=== PATIENT | female | born 1975 | race Native Hawaiian/Other Pacific Islander ===

== ENCOUNTER 2024-02-06 20:57 | Observation (INO) | payer OTHER, SELFPAY ==
[2024-02-06] VITALS (19 sets, daily range): BP systolic 154–188; BP diastolic 102–128; PULSE 88–115; RESP 18–34; TEMP 36.8; O2SAT 89–100
--- NOTE | ~2024-02-06 | XR_ITS ---
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 RESULT: Lines, tubes, and devices: Tracheostomy tube in good position. Lungs and pleura: Significant rightward rotation. Segmental right lower lung airspace disease and mi ld right costophrenic angle blunting. Suggestion of mild diffuse reticular opacities with indistinct vessels Cardiomediastinal silhouette: Stable. Other: No acute osseous or upper abdominal finding. IMPRESSION: Exam limited by rotation. Segmental right lower lung atelectasis/consolidation. Suggestion of mild in terstitial edema. Possible small right pleural effusion. Reviewed, dictated and finalized at location K. TRAINER OPERATOR IMPRESSION: Exam limited by rotation. Segmental right lower lung atelectasis/consolidation. Suggestion of mild interstitial edema. Possible small right pleural effusion.
--- NOTE | 2024-02-06 21:06 | ECG_ITS ---
Test Date: 2024-02-06 21:21:27 Measurements Intervals [place] Rate: 93 P: 16 IL: 159 QRS: 8 QRSD: 85 T: 33 QT: 326 QTc: 406 Interpretive Statements SINUS RHYTHM LOW QRS VOLTAGE IN PRECORDIAL LEADS BORDERLINE R WAVE PROGRESSION, ANTERIOR LEADS CONSIDER INFERIOR INFARCT, AGE INDETERMINATE BASELINE ARTIFACT- I, II, III, AVR, AVL, AVF, V1-V2 ABNORMAL ECG No previous ECG available for comparison Electronically Signed On 02-07-2024 06:17:53 [employer] by Stanley Lopez D.O.
[2024-02-06] MEDS: IPRATROPIUM 0.5 MG/ALBUTEROL SULFATE 2.5 MG AMPUL.NEB 3 ML INHALATION (21:28)
[2024-02-06] MEDS: Please add drug allergy info to patient profile. 1 EACH XX (21:39)
[2024-02-06 22:09] LABS: Basophils Absolute Auto 0.1 K/mm3 (0.0-0.1); Basophils Percent Auto 0.8 % (0.2-1.2); Eosinophils Absolute Auto 0.3 K/mm3 (0-0.3); Hematocrit 31.4 % (37.0-47.0); Hemoglobin 9.4 g/dL (12.0-15.0); Immature Granulocyte Absolute 0.39 K/mm3 (0.00-0.031); Lymphocytes Absolute Auto 0.84 K/mm3 (0.9-3.2); Lymphocytes Percent Auto 6.6 % (18.3-44.2); Mean Corpuscular HGB Conc 29.9 g/dl (32-36); Mean Corpuscular Hemoglobin 29.4 pg (26-34); Mean Corpuscular Volume 98.1 fl (80-100); Mean Platelet Volume 8.6 fl (7.4-10.4); Monocytes Absolute Auto 0.9 K/mm3 (0.1-0.6); Monocytes Percent Auto 6.6 % (2.6-8.5); Neutrophils Absolute Auto 10.4 K/mm3 (1.3-6.7); Platelet Count Result 219 k/mm3 (150-375); Red Cell Distribution Width 14.7 % (11.5-14.5); White Blood Count 12.8 K/mm3 (4.5-10.0)
[2024-02-06 22:17] LABS: Hypochromasia 1+; Lactic Acid Reflex 0.8 mmol/L (0.7-2.0); Ovalocytes 1+; Platelet Estimate Adequate (Adequate); Schistocytes None Seen
[2024-02-06 22:18] LABS: Influenza A QL RT-PCR Negative (Negative); Influenza B QL RT-PCR Negative (Negative); RSV RNA, RT-PCR Negative (Negative); SARS-CoV-2 RNA PCR Negative (Negative)
[2024-02-06 22:19] LABS: Alanine Aminotransferase 15 U/L (6-35); Albumin Level 3.6 g/dL (3.5-5.1); Alkaline Phosphatase 105 U/L (38-126); Anion Gap 7 mmol/L (4-12); Aspartate Amino Transferase 16 U/L (14-36); Bilirubin,Total 0.7 mg/dL (0.2-1.3); Blood Urea Nitrogen 68 mg/dL (7-17); Calcium 9.2 mg/dL (8.4-10.2); Carbon Dioxide 26 mmol/L (22-30); Chloride 109 mmol/L (98-107); Estimated CRCL calculation 41 ml/min; Estimated Glomerular Filt Rate 17; Glucose 167 mg/dL (65-110); Sodium 142 mmol/L (137-145)
[2024-02-06 22:27] LABS: NT Pro B Type Natriuretic Pept 2720 pg/mL (19.9-100)
[2024-02-06 23:06] LABS: Troponin I 0.041 ng/mL (0.000-0.034)
[2024-02-06] MEDS: ASPIRIN 81 MG CHEWABLE TABLET 324 MG PO (23:20)
[2024-02-07] VITALS (54 sets, daily range): BP systolic 113–200; BP diastolic 67–131; PULSE 63–102; RESP 15–33; TEMP 36.1–36.9; O2SAT 92–100; BMI 59.6
[2024-02-07 01:19] LABS: Alveolar/Arterial O2 Gradient 73.9 mmHg; Base Excess ABG -1.1 mEq/l (+/-2.0); Fractional Inspired Oxygen 28 %; HCO3 ABG 24.2 mEq/l (22.0-26.0); Oxygen Content ABG 13.9 %vol (16.0-22.0); Oxygen Saturation ABG 94.8 % (95.0-100.0); Oxyhemoglobin 93.9 % THb (90.0-100.0); PCO2 ABG 42.7 mmHg (35.0-45.0); PO2 ABG 75.4 mmHg (80.0-100.0); PO2 FiO2 Ratio Arterial Blood 2.69 %; Total Hemoglobin 10.5 g/dL (12.0-18.0); pH ABG 7.371 (7.350-7.450)
[2024-02-07 01:20] LABS: Device VENTURI MASK; Modified Allen's Test Pass; Site Drawn RIGHT RADIAL
--- NOTE | 2024-02-07 01:29 | PC.NURSE ---
bjc updated abg results
--- NOTE | 2024-02-07 02:17 | ECG_ITS ---
Test Date: 2024-02-07 02:26:33 Measurements Intervals [place] Rate: 84 P: 8 TN: 158 QRS: 1 QRSD: 98 T: 30 QT: 364 QTc: 432 Interpretive Statements SINUS RHYTHM INCOMPLETE RIGHT BUNDLE BRANCH BLOCK BASELINE ARTIFACT- I, II, AVR, AVL, AVF BORDERLINE ECG Compared to ECG 02/06/2024 21:21:27 NO SIGNIFICANT CHANGE Electronically Signed On 02-07-2024 06:19:58 [employer] [facility] by Stanley Lopez D.O.
[2024-02-07 02:38] LABS: Troponin I 0.056 ng/mL (0.000-0.034)
[2024-02-07] MEDS: MORPHINE SULFATE (*CRX) 2 MG/ML INJ IV PUSH (02:40)
--- NOTE | 2024-02-07 03:18 | ED_ITS ---
HPI - General Adult General Chief complaint: Shortness of Breath/Dyspnea <Piter Segal MD - Last Filed: 02/07/24 05:03> Stated complaint: low O2 sats, trach, bariatric patient <Piter Segal MD - Last Filed: 02/07/24 05:03> Time Seen by Provider: 02/06/24 21:01 <Piter Segal MD - Last Filed: 02/07/24 05:03> History of Present Illness HPI narrative: Patient 48-year-old female who presents emergency department with chief complaint of shortness of breath. Patient was discharged from [facility] earlier this afternoon to [place] the patient arrived to the facility she has a chronic trach and the facility was unable to suction her as they do not have the appropriate equipment the patient states that she became short of breath and had mucus plugging patient is feeling better since she has been suctioned of but does not feel comfortable going back to the facility and would like to be transferred back to where she was previously admitted at. <Piter Segal MD - Last Filed: 02/07/24 05:03> Related Data Home medications: Home Medications Medication Instructions Recorded Confirmed Aspercreme (lidocaine HCl) 02/06/24 02/06/24 Miralax 02/06/24 Saccharomyces boulardii 250 mg 250 mg PO BID 02/06/24 capsule (Florastor) acetaminophen 500 tablet 02/06/24 albuterol See Rx Instructions .Route .COMPLEX 02/06/24 02/06/24 amoxicillin 500 mg-potassium 02/06/24 02/06/24 clavulanate 125 mg tablet ettpllsl-wbltdftsy-nsgiflq HMB 02/06/24 02/06/24 bisacodyl 10 mg rectal suppository 02/06/24 02/06/24 (Gentle Laxative (bisacodyl)) budesonide 02/06/24 02/06/24 buspirone 10 mg tablet 02/06/24 02/06/24 citalopram 20 mg tablet 10 mg 02/06/24 cyclobenzaprine 10 mg tablet mg 02/06/24 cyclobenzaprine 10 mg tablet mg 02/06/24 furosemide 40 mg tablet mg 02/06/24 furosemide 40 mg tablet (Lasix) 40 mg PO DAILY 02/06/24 02/06/24 glucagon 02/06/24 guaifenesin 600 tablet 02/06/24 insulin glargine See Protocol 02/06/24 insulin lispro 02/06/24 ipratropium-albuterol 02/06/24 loperamide 2 mg capsule 2 mg PO Q4H PRN Diarrhea 02/06/24 miconazole nitrate 2 % topical 1 applic topical DAILY 02/06/24 cream montelukast 10 mg tablet mg 02/06/24 multivitamin tablet 02/06/24 naloxone 4 mg/actuation nasal spray intranasal 02/06/24 nifedipine 20 mg capsule mg 02/06/24 ondansetron HCl 4 mg tablet mg 02/06/24 oxybutynin chloride 10 mg mg PO 02/06/24 tablet,extended release 24 hr oxycodone-acetaminophen 5 mg-325 tablet 02/06/24 mg tablet pantoprazole 40 mg tablet,delayed mg PO 02/06/24 release rivaroxaban 10 mg tablet (Xarelto) 10 mg PO DAILY 02/06/24 simethicone 80 mg chewable tablet 80 mg PO DAILY PRN 02/06/24 Gastrointestinal Spasms Or Cramping sodium zirconium cyclosilicate 10 g PO 02/06/24 gram oral powder packet (Lokelma) white petrolatum topical 02/06/24 <Piter Segal MD - Last Filed: 02/07/24 05:03> Allergies/adverse reactions: Allergies Allergy/AdvReac Type Severity Reaction Status Date / Time levofloxacin [From Levaquin] Allergy Unknown Verified 02/06/24 21:39 vancomycin Allergy Unknown Verified 02/06/24 21:38 <Piter Segal MD - Last Filed: 02/07/24 05:03> Review of Systems Review of Systems: A 10 system review of systems was completed on the patient and is negative except for what is stated in the HPI. Nursing and ancillary documentation was reviewed. <Piter Segal MD - Last Filed: 02/07/24 05:03> Exam Narrative: GENERAL: Chronically ill appearing, morbidly obese, and in no acute distress. HEAD: Normocephalic, atraumatic. EYES: PERRLA and EOMI. ENT: Nares clear, no rhinorrhea or epistaxis. Mucous membranes moist. NECK: Supple. Tracheostomy in place CHEST: Clear to auscultation. No respiratory distress. HEART: Regular rate and rhythm. No murmur heard. Normal peripheral pulses. ABDOMEN: Soft, nontender, nondistended, normal active bowel sounds. EXTREMITIES: Normal range of motion. No edema. SKIN: Warm, dry, no rash. NEURO: No focal deficits. Alert and oriented x3. PSYCH: Normal mood and affect. <Piter Segal MD - Last Filed: 02/07/24 05:03> Course Course Emergency Course: [place] 181: patient signed out to me pending transfer ability [facility] for placement into a appropriate long-term care facility. [facility] said they would not have beds for an extended period of time. We attempted to have the patient placed via care coordination our emergency department but due to unclear respiratory requirements we were unable to have her placed at this time. She will be admitted to the hospital. Per coordination of care they will need a service operator consult for appropriate AVAPS settings <Gray Muñoz MD - Last Filed: 02/07/24 18:16> Vital Signs Vital signs: Vital Signs Temperature 98.2 F 02/06/24 20:58 Pulse Rate 105 H 02/06/24 20:58 Respiratory Rate 25 H 02/06/24 20:58 Blood Pressure 154/123 H 02/06/24 20:58 Pulse Oximetry 94 02/06/24 20:58 Oxygen Delivery Trach Collar 02/06/24 20:58 Temperature 98.0 F 02/07/24 08:45 Pulse Rate 97 02/07/24 17:24 Respiratory Rate 19 02/07/24 17:24 Blood Pressure 168/102 H 02/07/24 17:24 Pulse Oximetry 95 02/07/24 17:24 Oxygen Delivery High Flow Therapy with Trach Collar 02/07/24 12:48 Oxygen Flow Rate 35 02/07/24 12:48 Fraction of Inspired Oxygen 30 02/07/24 12:48 <Piter Segal MD - Last Filed: 02/07/24 05:03> Vital Signs Temperature 98.2 F 02/06/24 20:58 Pulse Rate 105 H 02/06/24 20:58 Respiratory Rate 25 H 02/06/24 20:58 Blood Pressure 154/123 H 02/06/24 20:58 Pulse Oximetry 94 02/06/24 20:58 Oxygen Delivery Trach Collar 02/06/24 20:58 Temperature 98.0 F 02/07/24 08:45 Pulse Rate 97 02/07/24 17:24 Respiratory Rate 19 02/07/24 17:24 Blood Pressure 168/102 H 02/07/24 17:24 Pulse Oximetry 95 02/07/24 17:24 Oxygen Delivery High Flow Therapy with Trach Collar 02/07/24 12:48 Oxygen Flow Rate 35 02/07/24 12:48 Fraction of Inspired Oxygen 30 02/07/24 12:48 <Gray Muñoz MD - Last Filed: 02/07/24 18:16> Medical Decision Making Vital Signs Vital Signs: Vital Signs Temperature 98.2 F 02/06/24 20:58 Pulse Rate 105 H 02/06/24 20:58 Respiratory Rate 25 H 02/06/24 20:58 Blood Pressure 154/123 H 02/06/24 20:58 Pulse Oximetry 94 02/06/24 20:58 Oxygen Delivery Trach Collar 02/06/24 20:58 Temperature 98.0 F 02/07/24 08:45 Pulse Rate 97 02/07/24 17:24 Respiratory Rate 19 02/07/24 17:24 Blood Pressure 168/102 H 02/07/24 17:24 Pulse Oximetry 95 02/07/24 17:24 Oxygen Delivery High Flow Therapy with Trach Collar 02/07/24 12:48 Oxygen Flow Rate 35 02/07/24 12:48 Fraction of Inspired Oxygen 30 02/07/24 12:48 <Piter Segal MD - Last Filed: 02/07/24 05:03> Vital Signs Temperature 98.2 F 02/06/24 20:58 Pulse Rate 105 H 02/06/24 20:58 Respiratory Rate 25 H 02/06/24 20:58 Blood Pressure 154/123 H 02/06/24 20:58 Pulse Oximetry 94 02/06/24 20:58 Oxygen Delivery Trach Collar 02/06/24 20:58 Temperature 98.0 F 02/07/24 08:45 Pulse Rate 97 02/07/24 17:24 Respiratory Rate 19 02/07/24 17:24 Blood Pressure 168/102 H 02/07/24 17:24 Pulse Oximetry 95 11/27/24 17:24 Oxygen Delivery High Flow Therapy with Trach Collar 02/07/24 12:48 Oxygen Flow Rate 35 02/07/24 12:48 Fraction of Inspired Oxygen 30 02/07/24 12:48 <Gray Muñoz MD - Last Filed: 02/07/24 18:16> Lab Data Result diagrams: 02/06/24 22:04 02/06/24 22:04 <Piter Segal MD - Last Filed: 02/07/24 05:03> Labs: Lab Results 02/06/24 02/06/24 02/07/24 Range/Units 21:14 22:04 02:07 WBC 12.8 H (4.5-10.0) K/mm3 RBC 3.20 L (4.2-5.4) M/mm3 Hgb 9.4 L (12.0-15.0) g/dL Hct 31.4 L (37.0-47.0) % MCV 98.1 (80-100) fl MCH 29.4 (26-34) pg MCHC 29.9 L (32-36) g/dl RDW 14.7 H (11.5-14.5) % Plt Count 219 (150-375) k/mm3 MPV 8.6 (7.4-10.4) fl Immature Gran % (Auto) 3.0 H (0-0.5) % Neut % (Auto) 81.0 H (45.5-73.1) % Lymph % (Auto) 6.6 L (18.3-44.2) % [place] % (Auto) 6.6 (2.6-8.5) % Eos % (Auto) 2.0 (0-4.4) % Baso % (Auto) 0.8 (0.2-1.2) % Lymph # (Auto) 0.84 L (0.9-3.2) K/mm3 [place] # (Auto) 0.9 H (0.1-0.6) K/mm3 Eos # (Auto) 0.3 (0-0.3) K/mm3 Baso # (Auto) 0.1 (0.0-0.1) K/mm3 Abs Immat Gran (auto) 0.39 H (0.00-0.031) K/mm3 Absolute Neuts (auto) 10.4 H (1.3-6.7) K/mm3 Absolute Nucleated RBC 0.000 (0.0-0.012) K/mm3 Nucleated RBC % 0.0 (0.0-0.2) % Platelet Estimate Adequate (Adequate) Hypochromasia 1+ Ovalocytes 1+ Schistocytes None seen Sodium 142 (137-145) mmol/L Potassium 5.0 (3.4-5.0) mmol/L Chloride 109 H (98-107) mmol/L Carbon Dioxide 26 (22-30) mmol/L Anion Gap 7 (4-12) mmol/L BUN 68 H (7-17) mg/dL Creatinine 3.00 H (0.7-1.0) mg/dL Estim Creat Clear Calc 41 ml/min Estimated GFR 17 L (59 - ) Glucose 167 H (65-110) mg/dL Lactic Acid 0.8 (0.7-2.0) mmol/L Calcium 9.2 (8.4-10.2) mg/dL Total Bilirubin 0.7 (0.2-1.3) mg/dL AST 16 (14-36) U/L ALT 15 (6-35) U/L Alkaline Phosphatase 105 (38-126) U/L Troponin I 0.041 H* 0.056 H* D (0.000-0.034) ng/mL NT-Pro-B Natriuret Pep 2720 H (19.9-100) pg/mL Total Protein 7.0 (6.3-8.2) g/dL Albumin 3.6 (3.5-5.1) g/dL Influenza A (RT-PCR) Negative (Negative) Influenza B (RT-PCR) Negative (Negative) RSV (RT-PCR) Negative (Negative) SARS-CoV-2 RNA (RT-PCR) Negative (Negative) <Piter Segal MD - Last Filed: 02/07/24 05:03> Lab Results 02/06/24 02/06/24 02/07/24 Range/Units 21:14 22:04 02:07 WBC 12.8 H (4.5-10.0) K/mm3 RBC 3.20 L (4.2-5.4) M/mm3 Hgb 9.4 L (12.0-15.0) g/dL Hct 31.4 L (37.0-47.0) % MCV 98.1 (80-100) fl MCH 29.4 (26-34) pg MCHC 29.9 L (32-36) g/dl RDW 14.7 H (11.5-14.5) % Plt Count 219 (150-375) k/mm3 MPV 8.6 (7.4-10.4) fl Immature Gran % (Auto) 3.0 H (0-0.5) % Neut % (Auto) 81.0 H (45.5-73.1) % Lymph % (Auto) 6.6 L (18.3-44.2) % [place] % (Auto) 6.6 (2.6-8.5) % Eos % (Auto) 2.0 (0-4.4) % Baso % (Auto) 0.8 (0.2-1.2) % Lymph # (Auto) 0.84 L (0.9-3.2) K/mm3 [place] # (Auto) 0.9 H (0.1-0.6) K/mm3 Eos # (Auto) 0.3 (0-0.3) K/mm3 Baso # (Auto) 0.1 (0.0-0.1) K/mm3 Abs Immat Gran (auto) 0.39 H (0.00-0.031) K/mm3 Absolute Neuts (auto) 10.4 H (1.3-6.7) K/mm3 Absolute Nucleated RBC 0.000 (0.0-0.012) K/mm3 Nucleated RBC % 0.0 (0.0-0.2) % Platelet Estimate Adequate (Adequate) Hypochromasia 1+ Ovalocytes 1+ Schistocytes None seen Sodium 142 (137-145) mmol/L Potassium 5.0 (3.4-5.0) mmol/L Chloride 109 H (98-107) mmol/L Carbon Dioxide 26 (22-30) mmol/L Anion Gap 7 (4-12) mmol/L BUN 68 H (7-17) mg/dL Creatinine 3.00 H (0.7-1.0) mg/dL Estim Creat Clear Calc 41 ml/min Estimated GFR 17 L (59 - ) Glucose 167 H (65-110) mg/dL Lactic Acid 0.8 (0.7-2.0) mmol/L Calcium 9.2 (8.4-10.2) mg/dL Total Bilirubin 0.7 (0.2-1.3) mg/dL AST 16 (14-36) U/L ALT 15 (6-35) U/L Alkaline Phosphatase 105 (38-126) U/L Troponin I 0.041 H* 0.056 H* D (0.000-0.034) ng/mL NT-Pro-B Natriuret Pep 2720 H (19.9-100) pg/mL Total Protein 7.0 (6.3-8.2) g/dL Albumin 3.6 (3.5-5.1) g/dL Influenza A (RT-PCR) Negative (Negative) Influenza B (RT-PCR) Negative (Negative) RSV (RT-PCR) Negative (Negative) SARS-CoV-2 RNA (RT-PCR) Negative (Negative) <Gray Muñoz MD - Last Filed: 02/07/24 18:16> ABG Data ABG results: 02/07/24 01:10 Puncture Site Right radial ABG pH 7.371 ABG pCO2 42.7 ABG pO2 75.4 L ABG PO2/FiO2 Ratio 2.69 ABG HCO3 24.2 ABG O2 Saturation 94.8 L ABG O2 Content 13.9 L ABG Base Excess -1.1 A-a Gradient 73.9 Oxyhemoglobin 93.9 Total Hemoglobin 10.5 L O2 Delivery Device Venturi mask O2 Liters/Min 6.0 FiO2 28 <Piter Segal MD - Last Filed: 02/07/24 05:03> 02/07/24 01:10 Puncture Site Right radial ABG pH 7.371 ABG pCO2 42.7 ABG pO2 75.4 L ABG PO2/FiO2 Ratio 2.69 ABG HCO3 24.2 ABG O2 Saturation 94.8 L ABG O2 Content 13.9 L ABG Base Excess -1.1 A-a Gradient 73.9 Oxyhemoglobin 93.9 Total Hemoglobin 10.5 L O2 Delivery Device Venturi mask O2 Liters/Min 6.0 FiO2 28 <Gray Muñoz MD - Last Filed: 02/07/24 18:16> Discharge Plan Discharge Clinical Impression: Debility, Morbid obesity <Piter Segal MD - Last Filed: 02/07/24 05:03> Patient Disposition: Still a Patient <Piter Segal MD - Last Filed: 02/07/24 05:03> Condition: Stable <Piter Segal MD - Last Filed: 02/07/24 05:03> Prescriptions: No Action multivitamin [A To Z Multivitamin] Tablet loperamide 2 mg Capsule 2 mg PO Q4H PRN (Reason: Diarrhea) Rx Instructions: administer after each loose stool until symptoms controlled; do not exceed 8 mg per 24 hrs oxybutynin chloride 10 mg tablet extended release 24hr PO miconazole nitrate 2 % Cream 1 applic TOPICAL DAILY nifedipine 20 mg capsule ondansetron HCl 4 mg tablet oxycodone-acetaminophen 5-325 mg tablet pantoprazole 40 mg tablet,delayed release (DR/EC) PO white petrolatum Ointment TOPICAL montelukast 10 mg tablet simethicone 80 mg Tablet,Chewable 80 mg PO DAILY PRN (Reason: Gastrointestinal Spasms Or Cramping) Saccharomyces boulardii [Florastor] 250 mg Capsule 250 mg PO BID Xarelto 10 mg Tablet 10 mg PO DAILY Rx Instructions: for 35 days naloxone 4 mg/actuation [place],Non-Aerosol INTRANASAL Lokelma 10 gram powder in packet PO Miralax cyclobenzaprine 10 mg tablet furosemide 40 mg tablet citalopram 20 mg tablet 10 mg bisacodyl [Gentle Laxative (bisacodyl)] 10 mg Suppository buspirone 10 mg tablet amoxicillin-pot clavulanate 500-125 mg tablet acetaminophen tablet 500 tablet albuterol See Rx Instructions .ROUTE .COMPLEX Rx Instructions: nebulizer xewdmmjj-tgvmvyjyc-ygjnojt HMB budesonide cyclobenzaprine 10 mg Tablet furosemide [Lasix] 40 mg Tablet 40 mg PO DAILY glucagon guaifenesin tablet 600 tablet insulin glargine See Protocol Protocol: Insulin Corrective High-Dose Condition: glucose < 70 mg/dl Dose/Route: Follow hypoglycemia order Condition: glucose 70-200 mg/dl Dose/Route: No additional insulin Condition: glucose 201-250 mg/dl Dose/Route: 4 units sub-Q Condition: glucose 251-300 mg/dl Dose/Route: 5 units sub-Q Condition: glucose 301-350 mg/dl Dose/Route: 6 units sub-Q Condition: glucose 351-400 mg/dl Dose/Route: 8 units sub-Q Condition: glucose > 400 mg/dl Dose/Route: Call MD Protocol Text: *No Correction Dose at Bedtime* Aspercreme (lidocaine HCl) patch insulin lispro ipratropium-albuterol <Piter Segal MD - Last Filed: 02/07/24 05:03> Follow-up/Referrals: UNKNOWN,DOCTOR [Primary Care Provider] - <Piter Segal MD - Last Filed: 02/07/24 05:03>
[2024-02-07] MEDS: hydrALAZINE HCL 20 MG/ML VIAL 10 MG IV PUSH (03:37)
[2024-02-07] MEDS: hydrALAZINE HCL 20 MG/ML VIAL IV PUSH (04:37)
[2024-02-07] MEDS: HYDROmorphone HCL INJ (*CRX) 1 MG/ML SYR IV PUSH (04:38)
[2024-02-07] MEDS: NIFEdipine 10 MG CAPSULE 20 MG PO (05:00)
--- NOTE | 2024-02-07 05:10 | PC.NURSE ---
rn attempted to suction inline trach with nothing produced.
[2024-02-07] MEDS: IPRATROPIUM 0.5 MG/ALBUTEROL SULFATE 2.5 MG AMPUL.NEB 3 ML INHALATION ×2 (05:26→16:04)
--- NOTE | 2024-02-07 08:46 | PC.NURSE ---
Claudia from [facility] called for updated VS and report on pt. They plan to place her in the bed later today or possibly this morning.
--- NOTE | 2024-02-07 09:43 | PCCCNOTE ---
Pt feels [place] [facility] unable to care properly for trach pt thus feels unsafe going back. Information gathered and contacted [facility] for placement. Info faxed and awaiting review by [facility].
[2024-02-07] MEDS: IPRATROPIUM 0.5 MG/ALBUTEROL SULFATE 2.5 MG AMPUL.NEB 3 ML 6 ML INHALATION (09:44)
--- NOTE | 2024-02-07 10:23 | PCCCNOTE ---
[facility] returned call and they are unable to accept pt due to BiPAP requirements.
[2024-02-07] MEDS: ACETAMINOPHEN 325 MG TABLET 650 MG PO (12:41)
--- NOTE | 2024-02-07 13:28 | PC.NURSE ---
[facility] called this RN at 1322 stating [facility] has accepted patient and are able to accommodate the patient. This Patient notified Ben care coordination and charge attendant.
--- NOTE | 2024-02-07 13:39 | PCCCNOTE ---
Attempted to call main line at [facility] ([phone]) but was unable to reach admission and voice mail not set up. From contact list I called Vicky ([phone]) and was able to leave a message. I am awaiting call back.
--- NOTE | 2024-02-07 14:06 | PCCCNOTE ---
Contacted Vicky at [facility] () in [place]. Originally [facility] ([facility]) contacted regarding placement. They could not accept pt because AVAPS was ordered at night and they do not handle AVAPS equipment. They can do PSV at night with back up orders for a vent at night (need vent settings). They can handle the trach care. I informed Dr Muñoz and if pt cannot be sent back to [facility] then pt will be admitted and this can be sorted out on the floor. [facility] ([phone]) and Vicky ([phone]). They can accept pt if PSV and back up vent orders
--- NOTE | 2024-02-07 19:45 | PM.IMHP ---
H&P: HPI History of Present Illness Date/Time: 02/07/24 19:45 Chief Complaint: Hypoxia Narrative: 48 y/o F presents here with hypoxia and shortness of breath with PMH of chronic tracheostomy, The patient presents here from [place] via EMS for further evaluation of hypoxia and shortness of breath. The patient was recently admitted to [facility] for pneumonia, UTI, and CO2 narcosis. Reports she has completed antibiotic courses for these infections found at this admission. Previously staying [facility] in [place], unable to go back to this facility due to the vent she is on. She was discharged on 02/05 in the afternoon. Then developed shortness of breath after she arrived to [place]. Facility did not have appointment to suction her chronic tracheostomy. Patient concerned she had mucus plugging. Post arrival to the ED they were able to suction her trach which provided patient relief from the shortness of breath and she is currently feeling improved but remains short of breath. However she believes this is due to not receiving her home medications well awaiting transfer. She requested transfer back to [facility] who do not currently have any beds and they were unable to provide a timeline for when a bed would become available. Patient is also reporting that she is not comfortable going back to [place] citing that she did not feel safe. Care coordination attempted to place patient via the emergency department, however due to unclear respiratory requirements they were unable to place her at this time. Per care coordination, they will need a pulmonology consultation for appropriate AVAPS settings. She currently denies any associated fever, chills, body aches, or chest pain. Initial VS at presentation: 98.2? F, HR 105, RR 25, 154/123, and 94% on 8L via trach collar ED workup showed: WBC 12.8, hemoglobin 9.4, creatinine 3.0 and GFR 17, troponin 0.041, viral PCR negative. CXR is limited by rotation, segmental right lower lung atelectasis/consolidation, suggestion of mild interstitial edema, possible small right pleural effusion. Review of Systems Review of Systems: All systems reviewed & are unremarkable except as noted in HPI and below PMFSH Past Medical History Medical History (Updated 02/07/24 @ 21:55 by Evette Santillan, ADAM) Morbid obesity Tracheostomy dependent Social History Social History Smoking status: Never smoker Alcohol intake: never Substance use: never Substance use type: does not use Do You Feel Safe in your Home?: No Lack of Transportation: No Lack of Food: Never True Current Housing: I Have Housing Concerned About Future Housing: No Difficulty Paying Gas/Electric Bills: No Difficulty Paying for Meds: No Currently Unemployed: No Education: High School Diploma/GED Difficulty w/ Childcare or Family Care: No Spiritual care concerns: No Meds Home Medications and Allergies Home Medications Medication Instructions Recorded Confirmed Type Aspercreme (lidocaine HCl) 02/06/24 02/06/24 History Miralax 02/06/24 History Saccharomyces boulardii 250 mg 250 mg PO BID 02/06/24 02/07/24 History capsule (Florastor) amoxicillin 500 mg-potassium 02/06/24 02/06/24 History clavulanate 125 mg tablet [id number] HMB 02/06/24 02/06/24 History bisacodyl 10 mg rectal suppository 10 mg RECTAL DAILY PRN Constipation 02/06/24 02/07/24 History (Gentle Laxative (bisacodyl)) buspirone 10 mg tablet 10 mg PO TID 02/06/24 02/07/24 History citalopram 20 mg tablet 20 mg PO DAILY 02/06/24 02/07/24 History cyclobenzaprine 10 mg tablet 10 mg PO TID 02/06/24 02/07/24 History furosemide 40 mg tablet 40 mg PO DAILY 02/06/24 02/06/24 History glucagon 02/06/24 History insulin glargine See Protocol 02/06/24 History insulin lispro 02/06/24 History loperamide 2 mg capsule 2 mg PO QID PRN Diarrhea 02/06/24 02/07/24 History miconazole nitrate 2 % topical 1 applic topical DAILY 02/06/24 02/07/24 History cream montelukast 10 mg tablet 10 mg PO HS 02/06/24 02/07/24 History multivitamin 1 tablet PO DAILY 02/06/24 02/07/24 History naloxone 4 mg/actuation nasal spray 1 spray intranasal PRN PRN Opioid 02/06/24 02/07/24 History Reversal nifedipine 20 mg capsule 10 mg PO DAILY 02/06/24 02/07/24 History ondansetron HCl 4 mg tablet 4 mg PO Q4H PRN Nausea And Vomiting 02/06/24 02/07/24 History oxybutynin chloride 10 mg 10 mg PO DAILY 02/06/24 02/07/24 History tablet,extended release 24 hr oxycodone-acetaminophen 5 mg-325 1 tablet PO Q8H PRN Pain 02/06/24 02/07/24 History mg tablet pantoprazole 40 mg tablet,delayed 40 mg PO DAILY 02/06/24 02/07/24 History release rivaroxaban 10 mg tablet (Xarelto) 10 mg PO DAILY 02/06/24 02/07/24 History simethicone 80 mg chewable tablet 80 mg PO QID PRN Gastrointestinal 02/06/24 02/07/24 History Spasms Or Cramping sodium zirconium cyclosilicate 10 10 g PO TID 02/06/24 02/07/24 History gram oral powder packet (Lokelma) white petrolatum 1 applic topical DAILY 02/06/24 02/07/24 History acetaminophen 500 mg tablet 1,000 mg PO Q6H PRN Pain 02/07/24 02/07/24 History albuterol sulfate 2.5 mg/3 mL 2.5 mg inhalation Q4H PRN Wheezing 02/07/24 02/07/24 History (0.083 %) solution for nebulization budesonide 0.5 mg/2 mL suspension 0.5 mg inhalation BID 02/07/24 02/07/24 History for nebulization guaifenesin 600 mg tablet, 600 mg PO BID 02/07/24 02/07/24 History extended release 12 hr ipratropium 0.5 mg-albuterol 3 mg 3 ml inhalation Q6H 02/07/24 02/07/24 History (2.5 mg base)/3 mL nebulization soln Allergies Allergy/AdvReac Type Severity Reaction Status Date / Time levofloxacin [From Levaquin] Allergy Unknown Verified 02/06/24 21:39 vancomycin Allergy Unknown Verified 02/06/24 21:38 Vital Signs Vital Signs - 24 hr 02/06/24 20:58 02/06/24 21:09 02/06/24 21:28 Temperature 98.2 F Pulse Rate 105 H 96 Respiratory Rate 25 H 21 H Blood Pressure 154/123 H Pulse Oximetry 94 94 Oxygen Delivery Trach Collar Trach Collar Oxygen Flow Rate 8 Fraction of Inspired Oxygen 02/06/24 21:44 02/06/24 21:45 02/07/24 01:21 Temperature Pulse Rate 115 H Respiratory Rate 19 Blood Pressure Pulse Oximetry 100 100 Oxygen Delivery High Flow Therapy with Tr Venturi Mask Oxygen Flow Rate 20 6 Fraction of Inspired Oxygen 28 02/06/24 22:17 02/06/24 22:42 02/06/24 22:45 Temperature Pulse Rate 106 H 101 H 106 H Respiratory Rate 28 H 21 H 27 H Blood Pressure Pulse Oximetry 92 89 L Oxygen Delivery Oxygen Flow Rate Fraction of Inspired Oxygen 02/06/24 22:57 02/06/24 23:00 02/06/24 23:01 Temperature Pulse Rate 107 H 98 99 Respiratory Rate 24 H 21 H 24 H Blood Pressure 168/104 H 188/107 H Pulse Oximetry 91 91 92 Oxygen Delivery Oxygen Flow Rate Fraction of Inspired Oxygen 02/06/24 23:15 02/06/24 23:16 02/06/24 23:30 Temperature Pulse Rate 88 99 93 Respiratory Rate 21 H 20 25 H Blood Pressure 178/108 H Pulse Oximetry 89 L 90 92 Oxygen Delivery Oxygen Flow Rate Fraction of Inspired Oxygen 02/06/24 23:31 02/06/24 23:45 02/06/24 23:46 Temperature Pulse Rate 96 101 H 97 Respiratory Rate 19 34 H 18 Blood Pressure 181/102 H 154/128 H Pulse Oximetry 91 91 Oxygen Delivery Oxygen Flow Rate Fraction of Inspired Oxygen 02/07/24 00:01 02/07/24 00:02 02/07/24 00:59 Temperature Pulse Rate 102 H 91 91 Respiratory Rate 23 H 19 18 Blood Pressure 190/98 H Pulse Oximetry 97 99 100 Oxygen Delivery Oxygen Flow Rate Fraction of Inspired Oxygen 02/07/24 01:54 02/07/24 02:00 02/07/24 02:15 Temperature Pulse Rate 90 90 101 H Respiratory Rate 23 H 17 22 H Blood Pressure Pulse Oximetry 100 95 98 Oxygen Delivery Oxygen Flow Rate Fraction of Inspired Oxygen 02/07/24 02:23 02/07/24 03:11 02/07/24 03:15 Temperature 98.4 F Pulse Rate 93 87 91 Respiratory Rate 18 19 16 Blood Pressure 189/131 H 167/119 H Pulse Oximetry 99 100 96 Oxygen Delivery Oxygen Flow Rate Fraction of Inspired Oxygen 02/07/24 03:16 02/07/24 03:19 02/07/24 03:30 Temperature Pulse Rate 85 82 86 Respiratory Rate 26 H 18 21 H Blood Pressure 190/113 H Pulse Oximetry 97 97 Oxygen Delivery Oxygen Flow Rate Fraction of Inspired Oxygen 02/07/24 03:31 02/07/24 03:46 02/07/24 03:47 Temperature Pulse Rate 77 83 93 Respiratory Rate 26 H 15 15 Blood Pressure 180/94 H 187/102 H Pulse Oximetry Oxygen Delivery Oxygen Flow Rate Fraction of Inspired Oxygen 02/07/24 04:00 02/07/24 04:02 02/07/24 04:04 Temperature Pulse Rate 99 97 93 Respiratory Rate 24 H 19 16 Blood Pressure 200/109 H 199/114 H Pulse Oximetry Oxygen Delivery Oxygen Flow Rate Fraction of Inspired Oxygen 02/07/24 04:15 02/07/24 04:16 02/07/24 04:51 Temperature Pulse Rate 85 83 Respiratory Rate 16 22 H Blood Pressure 183/107 H Pulse Oximetry 97 Oxygen Delivery High Flow Therapy with Tr Oxygen Flow Rate 10 Fraction of Inspired Oxygen 02/07/24 05:26 02/07/24 05:26 02/07/24 04:17 Temperature Pulse Rate 94 83 Respiratory Rate 21 H 22 H Blood Pressure Pulse Oximetry 94 Oxygen Delivery Venturi Mask Oxygen Flow Rate 6 Fraction of Inspired Oxygen 02/07/24 04:30 02/07/24 04:31 02/07/24 04:45 Temperature Pulse Rate 90 83 89 Respiratory Rate 19 20 23 H Blood Pressure 176/119 H Pulse Oximetry 92 Oxygen Delivery Oxygen Flow Rate Fraction of Inspired Oxygen 02/07/24 04:46 02/07/24 04:52 02/07/24 05:00 Temperature Pulse Rate 81 77 85 Respiratory Rate 22 H 17 21 H Blood Pressure 194/108 H 167/100 H Pulse Oximetry 93 94 92 Oxygen Delivery Oxygen Flow Rate Fraction of Inspired Oxygen 02/07/24 05:01 02/07/24 05:09 02/07/24 05:15 Temperature Pulse Rate 89 92 78 Respiratory Rate 26 H 33 H 19 Blood Pressure 163/96 H 180/98 H Pulse Oximetry 95 94 92 Oxygen Delivery Oxygen Flow Rate Fraction of Inspired Oxygen 02/07/24 05:16 02/07/24 05:37 02/07/24 05:17 Temperature Pulse Rate 85 89 93 Respiratory Rate 22 H 24 H 24 H Blood Pressure 181/116 H Pulse Oximetry 95 94 Oxygen Delivery Oxygen Flow Rate Fraction of Inspired Oxygen 02/07/24 05:30 02/07/24 05:31 02/07/24 05:45 Temperature Pulse Rate 81 78 90 Respiratory Rate 16 18 20 Blood Pressure 169/100 H Pulse Oximetry 98 95 95 Oxygen Delivery Oxygen Flow Rate Fraction of Inspired Oxygen 02/07/24 05:46 02/07/24 05:47 02/07/24 07:01 Temperature Pulse Rate 90 91 84 Respiratory Rate 19 20 Blood Pressure 113/80 119/67 141/92 H Pulse Oximetry 98 97 100 Oxygen Delivery Oxygen Flow Rate Fraction of Inspired Oxygen 02/07/24 07:58 02/07/24 08:45 02/07/24 09:45 Temperature 98.0 F Pulse Rate 85 97 82 Respiratory Rate 19 20 18 Blood Pressure 145/96 H 167/94 H Pulse Oximetry 98 97 Oxygen Delivery Oxygen Flow Rate Fraction of Inspired Oxygen 02/07/24 09:45 02/07/24 12:47 02/07/24 12:48 Temperature Pulse Rate 86 Respiratory Rate 24 H Blood Pressure Pulse Oximetry 96 100 Oxygen Delivery Venturi Mask High Flow Therapy with Tr Oxygen Flow Rate 6 35 Fraction of Inspired Oxygen 28 30 02/07/24 13:15 02/07/24 14:42 02/07/24 17:24 Temperature Pulse Rate 87 100 97 Respiratory Rate 26 H 20 19 Blood Pressure 171/100 H 168/102 H Pulse Oximetry 94 95 Oxygen Delivery Oxygen Flow Rate Fraction of Inspired Oxygen 02/07/24 18:23 02/06/24 21:50 02/06/24 22:13 Temperature 98.1 F Pulse Rate 97 115 H 115 H Respiratory Rate 22 H 19 19 Blood Pressure 153/108 H Pulse Oximetry 97 100 100 Oxygen Delivery High Flow Therapy with Tr High Flow Therapy with Tr Oxygen Flow Rate 20 20 Fraction of Inspired Oxygen Exam Narrative: morbidly obese. faint exp wheeze. mild tachypnea. Const: General: no acute distress and uncomfortable Other: , female, nontoxic appearance HENMT: Face/Nose/Sinus: Normal nares present Mouth: Yes moist mucous membranes Neck: Other: Tracheostomy present. Clean, dry, no erythema or exudate. Resp: Other: Mild tachypnea. Faint expiratory wheeze and diminished bases. Cardio: Rate: regular rate Rhythm: regular rhythm Other: S1-S2 present without murmur, rub, ectopy GI: Other: Abdomen rounded, soft, nontender. Skin: General skin exam: normal color Wounds: no wounds Neuro: Speech: normal speech Motor exam (neuro): 5/5 motor strength present throughout Sensory Exam: normal sensation Other: Generalized weakness. A&O x4. Extrem: General: normal to inspection Psych: Mental Status: mental status grossly normal Affect: Anxious affect present Other: Good insight and judgment, pleasant. H&P: Results Labs Labs: Short CBC 02/06/24 Range/Units 22:04 WBC 12.8 H (4.5-10.0) K/mm3 Hgb 9.4 L (12.0-15.0) g/dL Hct 31.4 L (37.0-47.0) % Plt Count 219 (150-375) k/mm3 BMP 02/06/24 22:04 Sodium 142 Potassium 5.0 Chloride 109 H Carbon Dioxide 26 BUN 68 H Creatinine 3.00 H Glucose 167 H Calcium 9.2 Cardiac Enzymes 02/06/24 02/07/24 Range/Units 22:04 02:07 Troponin I 0.041 H* 0.056 H* D (0.000-0.034) ng/mL Liver Function 02/06/24 Range/Units 22:04 Total Bilirubin 0.7 (0.2-1.3) mg/dL AST 16 (14-36) U/L ALT 15 (6-35) U/L Alkaline Phosphatase 105 (38-126) U/L Albumin 3.6 (3.5-5.1) g/dL Assessment and Plan Assessment and plan (1) Shortness of breath: Code(s): R06.02 - Shortness of breath Status: Acute Assessment and Plan: - CXR: Exam limited by rotation. Segmental right lower lung atelectasis/consolidation. Suggestion of mild interstitial edema. Possible small right pleural effusion. - viral PCR negative - troponin: 0.041 -> 0.056 -> 0.030, suspect mild bump due to initial hypoxia. No active chest pain at present. - improvement post suctioning, continue trach care - BNP elevated at 2720, however had recent workup at [facility]. obtaining records, if no recent echo completed there will need echo. Discussed this plan with patient, amenable to waiting for records. (2) Tracheostomy dependent: Code(s): Z93.0 - Tracheostomy status Status: Acute Assessment and Plan: - suctioning p.r.n. - CPT b.i.d. as tolerated for possible mucus plugging and EZ PAP Q4 - pulmonology consulted for AVAPS settings, needed for placement (3) Debility: Code(s): R53.81 - Other malaise Status: Acute Assessment and Plan: - previously discharged to [place], patient reports that she feels unsafe it would like to be placed at a different facility - care coordination consulted, unable to be placed from ED. Has had some leg work done to be [facility], patient reports she just needs one more peice of paperwork. Plan Diet: Heart healthy GI Prophylaxis: Not currently indicated DVT Prophylaxis: SCDs, Xarelto Lines: Peripheral Code Status: Full code Quality VTE Prophylaxis VTE prophylaxis: mechanical ordered Hospitalist MIPS Advance Care Plan I have confirmed that the patient's Advanced Care Plan is present, code status is documented, or surrogate decision maker is listed in patient medical record.: Yes Medication Reconciliation I have utilized all available resources to obtain, update and review the patients current medications (includes all prescriptions, OTC, herbals, cannabis, and nutritional supplements).: Yes
--- NOTE | 2024-02-07 20:33 | PC.NURSE ---
Attempted to call report to floor at 2014. Called report to Ger at 2032.
--- NOTE | 2024-02-07 20:50 | PC.NURSE ---
Called hospitalist for PRN tylenol order for patient due to headache. No answer at this time.
--- NOTE | 2024-02-07 20:56 | PC.NURSE ---
Ger RN called this RN and stated rm [id number] is ready for patient. LOUIS Issa to take patient upstairs at this time
--- NOTE | 2024-02-07 21:39 | ADMGEN ---
This patient, Carin Leung, was admitted to Medical Room 253-01. Patient/family oriented to hospital policies and general routines including ID bracelet, bed and alarms, visiting hours, pain management, procedures, bathroom and other care routines, personal items, smoking policy, room service/diet, and visiting hours. Information on how to activate the Rapid Response Team has been discussed. Patient/Family are encouraged to report perceived risks to care and to ask questions if they do not understand what they are told or what they should do.
[2024-02-08] VITALS (15 sets, daily range): BP systolic 153–181; BP diastolic 82–90; PULSE 72–101; RESP 16–20; TEMP 35.9–36.8; O2SAT 96–100
[2024-02-08 00:25] LABS: Anion Gap 7 mmol/L (4-12); Blood Urea Nitrogen 66 mg/dL (7-17); Calcium 9.1 mg/dL (8.4-10.2); Carbon Dioxide 24 mmol/L (22-30); Chloride 110 mmol/L (98-107); Estimated CRCL calculation 35 ml/min; Estimated Glomerular Filt Rate 16; Glucose 151 mg/dL (65-110); Hematocrit 30.8 % (37.0-47.0); Hemoglobin 8.8 g/dL (12.0-15.0); Immature Platelet Fraction Pct 0.8 % (0.9-11.2); Mean Corpuscular HGB Conc 28.6 g/dl (32-36); Mean Corpuscular Volume 101.7 fl (80-100); Mean Platelet Volume 8.7 fl (7.4-10.4); Platelet Count Result 272 k/mm3 (150-375); Potassium 4.7 mmol/L (3.4-5.0); Red Blood Count 3.03 M/mm3 (4.2-5.4); Red Cell Distribution Width 14.7 % (11.5-14.5); Sodium 141 mmol/L (137-145); White Blood Count 8.5 K/mm3 (4.5-10.0)
[2024-02-08 00:44] LABS: Anisocytosis 1+; Eosinophils Absolute Manual 0.25 K/mm3 (0.02-0.50); Eosinophils Percent Manual 3 % (0-4); Hypochromasia 1+; Lymphocytes Absolute Manual 2.04 K/mm3 (1.1-4.5); Monocytes Absolute Manual 0.51 K/mm3 (0.1-0.90); Monocytes Percent Manual 6 % (3-9); Neutrophils Percent Manual 67 % (46-73); Platelet Estimate Adequate (Adequate); Schistocytes None Seen; Total Cells Counted 100
[2024-02-08] MEDS: IPRATROPIUM 0.5 MG/ALBUTEROL SULFATE 2.5 MG AMPUL.NEB 3 ML INHALATION ×4 (01:04→20:06)
--- NOTE | 2024-02-08 07:43 | PC.NURSE ---
call to [facility] transfer line, spoke with Jumana, no beds available at this time, they will update us if they have discharges today
[2024-02-08] MEDS: BUDESONIDE RESPULE NEB 0.5 MG/2 ML AMP INHALATION ×2 (08:33→20:06)
[2024-02-08] MEDS: busPIRone HCL 10 MG TABLET PO ×3 (09:09→16:51)
[2024-02-08] MEDS: CITALOPRAM HYDROBROMIDE 10 MG TABLET 20 MG PO (09:09)
[2024-02-08] MEDS: CYCLOBENZAPRINE HCL 10 MG TABLET PO ×3 (09:10→16:51)
[2024-02-08] MEDS: MULTIVITAMINS THERAPEUTIC TAB (*BKC) 1 TABLET PO (09:12)
[2024-02-08] MEDS: NIFEdipine 10 MG CAPSULE PO (09:12)
[2024-02-08] MEDS: FUROSEMIDE 40 MG TABLET PO (09:12)
[2024-02-08] MEDS: oxyBUTYnin CHLORIDE XL 5 MG TAB.ER.24 10 MG PO (09:12)
[2024-02-08] MEDS: PANTOPRAZOLE 40 MG TABLET PO (09:12)
[2024-02-08] MEDS: RIVAROXABAN 10 MG TABLET PO (09:12)
[2024-02-08] MEDS: MICONAZOLE NITRATE 2% CREAM 30 GM TUBE 1 APPLIC TOPICAL (09:13)
[2024-02-08] MEDS: PETROLATUM OINTMENT 5 GM PACKET 1 APPLIC TOPICAL (09:13)
[2024-02-08] MEDS: guaiFENesin 12 HR 600 MG TABCR PO ×2 (09:13→20:50)
[2024-02-08] MEDS: SACCHAROMYCES BOULARDII 250 MG CAPSULE PO ×2 (09:13→16:51)
[2024-02-08 09:31] LABS: Glucose Point of Care 165 mg/dl (65-105)
--- NOTE | 2024-02-08 11:12 | P.PNIM_ITS ---
Progress Note: A&P Assessment and Plan (1) Shortness of breath: Code(s): R06.02 - Shortness of breath Status: Acute Assessment and Plan: - CXR: Exam limited by rotation. Segmental right lower lung atelectasis/ consolidation. Suggestion of mild interstitial edema. Possible small right pleural effusion. - viral PCR negative - troponin: 0.041 -> 0.056 -> 0.030. No chest pain. - Reports complete antibiotics treatment for PNA at the transferring hospital. - BNP 2720, treated at [facility] and awaiting medical records. - Pt reports she's at her normal baseline currently. 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 - CPT b.i.d. as tolerated for possible mucus plugging and EZ PAP Q4 - pulmonology consulted for AVAPS settings, needed for placement. - Continue nebulized treatments per RT. (3) Debility: Code(s): R53.81 - Other malaise Status: Acute Assessment and Plan: - previously discharged to [place] but reports feels unsafe over there and wants to be placed at a different facility. - unable to be placed from ED and prefers to go to [facility]. - care coordination consulted. (4) Depression: Code(s): F32.A - Depression, unspecified Status: Acute Assessment and Plan: - Stable. - Continue Citalopram and Buspar. (5) HTN (hypertension): Code(s): I10 - Essential (primary) hypertension Status: Acute Assessment and Plan: - Appears stable. - Continue Lasix and Nifedipine. (6) History of DVT (deep vein thrombosis): Code(s): Z86.718 - Personal history of other venous thrombosis and embolism Status: Acute Assessment and Plan: - Continue Xarelto. Plan Diet: Heart healthy GI Prophylaxis: Not currently indicated DVT Prophylaxis: SCDs, Xarelto Lines: Peripheral Code Status: Full code Time Spent With Patient Time with patient: 25 - 35 minutes Subjective Date/time seen: 02/08/24 11:12 Patient states she feels alright and has no SOB currently, just awaiting placement. Interval history: Patient presented here from [facility] via EMS for further evaluation of hypoxia and shortness of breath. The patient was recently admitted to [facility] for pneumonia, UTI, and CO2 narcosis. Reports she has completed antibiotic courses for these infections found at this admission. Previously staying [facility] in [place], unable to go back to this facility as they do not offer Vent support. She was discharged on 02/05 but developed shortness of breath after she arrived to [place]. Facility did not have equipment to suction her chronic tracheostomy and patient is concerned of the risk for mucus plugging. She was transferred to this facility as she await placement to a facility that accommodates Vent use. Review of Systems Review of Systems: All systems reviewed & are unremarkable except as noted in HPI and below Exam Narrative: General: Chronically ill appearing, super-morbidly obese, no acute distress. HEENT: Atraumatic, PERRL, EOM, moist mucosa. NECK: Supple. Tracheostomy midline. Lungs: Clear bilaterally. Heart: RRR, no murmurs. Abdomen: Soft, obese, non-tender, +ve bowel sounds X4 quadrants. Extremities: No edema, 2+ radial and pedal pulses. Skin: Warm and dry. No open lesions noted. Neuro: Well oriented. CN II-XII grossly intact. Psych: Calm and co-operative. Objective Data Vital Signs Vital Signs: Vital Signs - 24 hr 02/07/24 12:47 02/07/24 12:48 02/07/24 13:15 Temperature Pulse Rate 86 87 Respiratory Rate 24 H 26 H Blood Pressure Pulse Oximetry 100 Oxygen Delivery High Flow Therapy with Tr Oxygen Flow Rate 35 Fraction of Inspired Oxygen 30 02/07/24 14:42 02/07/24 17:24 02/07/24 18:23 Temperature 98.1 F Pulse Rate 100 97 97 Respiratory Rate 20 19 22 H Blood Pressure 171/100 H 168/102 H 153/108 H Pulse Oximetry 94 95 97 Oxygen Delivery Oxygen Flow Rate Fraction of Inspired Oxygen 02/07/24 20:33 02/07/24 22:00 02/07/24 23:49 Temperature 97.0 F L Pulse Rate 96 63 63 Respiratory Rate 22 H 16 16 Blood Pressure 155/102 H 166/86 H Pulse Oximetry 94 97 97 Oxygen Delivery High Flow Therapy with Tr Oxygen Flow Rate 8 Fraction of Inspired Oxygen 30 02/08/24 01:29 02/08/24 04:20 02/08/24 01:05 Temperature 96.6 F L Pulse Rate 89 72 Respiratory Rate 20 20 Blood Pressure 164/87 H Pulse Oximetry 96 99 Oxygen Delivery Trach Collar Oxygen Flow Rate 5 Fraction of Inspired Oxygen 33 02/08/24 01:15 02/08/24 08:00 Temperature Pulse Rate 74 Respiratory Rate 20 Blood Pressure Pulse Oximetry Oxygen Delivery Trach Collar Oxygen Flow Rate Fraction of Inspired Oxygen 33 Intake/Output Intake/Output: Intake & Output 02/05/24 02/06/24 02/07/24 02/08/24 23:59 23:59 23:59 23:59 Intake Total 120 Output Total 1200 200 Balance -1200 -80 Meds/Results Medications: Active Medications Generic Name Dose Route Start Last Admin Trade Name Freq PRN Reason Stop Dose Admin Acetaminophen 1,000 mg 02/07/24 23:29 Acetaminophen 500 Mg Tablet PO Q6H PRN Mild Pain Albuterol 2.5 mg 02/07/24 23:29 Albuterol Sulfate Neb 2.5 Mg/3 Ml Inh INHALATION Q4HRT PRN Wheezing Albuterol/Ipratropium 3 ml 02/08/24 02:00 02/08/24 08:33 Ipratropium 0.5 Mg/Albuterol Sulfate 2.5 Mg Ampul.Neb 3 Ml INHALATION 3 ml Q6HRT SHEBA Administration Bisacodyl 10 mg 02/07/24 23:29 Bisacodyl 10 Mg Suppository RECTAL DAILY PRN Constipation Budesonide 0.5 mg 02/08/24 08:00 02/08/24 08:33 Budesonide Respule Neb 0.5 Mg/2 Ml Amp INHALATION 0.5 mg Q12HRT SHEBA Administration Buspirone HCl 10 mg 02/08/24 09:00 02/08/24 09:09 Buspirone Hcl 10 Mg Tablet PO 10 mg TID SHEBA Administration Citalopram Hydrobromide 20 mg 02/08/24 09:00 02/08/24 09:09 Citalopram Hydrobromide 10 Mg Tablet PO 20 mg QAM SHEBA Administration Cyclobenzaprine HCl 10 mg 02/08/24 09:00 02/08/24 09:10 Cyclobenzaprine Hcl 10 Mg Tablet PO 10 mg TID SEHBA Administration Dextrose 12.5 gm 02/08/24 09:38 Dextrose 50% 25 Gm/50 Ml Syringe IV PUSH PRN PRN Hypoglycemia Protocol Emollient Ointment 1 applic 02/08/24 09:00 02/08/24 09:13 Petrolatum Ointment 5 Gm Packet TOPICAL 1 applic DAILY SHEBA Administration Furosemide 40 mg 02/08/24 09:00 02/08/24 09:12 Furosemide 40 Mg Tablet PO 40 mg DAILY SHEBA Administration Glucagon 1 mg 02/08/24 09:38 Glucagon For Inj 1 Mg Vial IM PRN PRN Hypoglycemia Protocol Glucose 15 gm 02/08/24 09:38 Glucose Oral Gel 15 Gm Of Glucse In 37.5 Gm Tube PO PRN PRN Hypoglycemia Protocol Guaifenesin 600 mg 02/08/24 09:00 02/08/24 09:13 Guaifenesin 12 Hr 600 Mg Tabcr PO 600 mg Q12HR SHEBA Administration Dextrose 1,000 mls @ 100 mls/hr 02/08/24 09:38 Dextrose 5% 1,000 Ml IVPB PRN PRN Hypoglycemia Protocol Insulin Aspart 3 - 6 units 02/08/24 12:00 Insulin Aspart (*Bkc) 100 Units/Ml SUB-Q TIDWM [facility] Protocol Insulin Aspart 1 - 3 units 02/08/24 21:00 Insulin Aspart (*Bkc) 100 Units/Ml SUB-Q HS [facility] Protocol Insulin Glargine 20 units 02/08/24 21:00 Insulin Glargine (*Bkc) 100 Units/Ml SUB-Q HS [facility] Loperamide HCl 2 mg 02/07/24 23:29 Loperamide Hcl 2 Mg Capsule PO QID PRN Diarrhea Miconazole Nitrate 1 applic 02/08/24 09:00 02/08/24 09:13 Miconazole Nitrate 2% Cream 30 Gm Tube TOPICAL 1 applic DAILY SHEBA Administration Montelukast Sodium 10 mg 02/08/24 21:00 Montelukast Sodium 10 Mg Tablet PO HS SHEBA Multivitamins Therapeutic 1 tablet 02/08/24 09:00 02/08/24 09:12 Multivitamins Therapeutic Tab (*Bkc) PO 1 tablet DAILY SHEBA Administration Naloxone HCl 0.4 mg 02/08/24 00:09 Naloxone Hcl 0.4 Mg/Ml Vial IV PUSH PRN PRN OPIATE REVERSAL Nifedipine 10 mg 02/08/24 09:00 02/08/24 09:12 Nifedipine 10 Mg Capsule PO 10 mg DAILY SHEBA Administration Ondansetron HCl 4 mg 02/07/24 23:29 Ondansetron Hcl Odt 4 Mg Tablet PO Q4H PRN Nausea And Vomiting Oxybutynin Chloride 10 mg 02/08/24 09:00 02/08/24 09:12 Oxybutynin Chloride Xl 5 Mg Tab.Er.24 PO 10 mg DAILY SHEBA Administration Oxycodone/Acetaminophen 1 tablet 02/07/24 23:29 Oxycodone/Acetaminophen (*Crx) 5-325 Mg Tablet PO Q8H PRN moderate-severe pain Pantoprazole Sodium 40 mg 02/08/24 09:00 02/08/24 09:12 Pantoprazole 40 Mg Tablet PO 40 mg DAILY SHEBA Administration Rivaroxaban 10 mg 02/08/24 09:00 02/08/24 09:12 Rivaroxaban 10 Mg Tablet PO 10 mg DAILY SHEBA Administration Saccharomyces Boulardii 250 mg 02/08/24 09:00 02/08/24 09:13 Saccharomyces Boulardii 250 Mg Capsule PO 250 mg BID SHEBA Administration Simethicone 80 mg 02/07/24 23:29 Simethicone 80 Mg Tab.Chew PO QID PRN Gastrointestinal Spasms Or Cramping Sodium Zirconium Cyclosilicate 10 gm 02/08/24 09:00 Sodium Zirconium Cyclosilicate 10 Gm Powd.Pack PO TID [facility] Radiology Results: ITS Impressions Chest X-Ray 02/06/24 21:51 IMPRESSION: Exam limited by rotation. Segmental right lower lung atelectasis/consolidation. Suggestion of mild interstitial edema. Possible small right pleural effusion. Labs Labs: Laboratory Results - last 24 hr 02/07/24 02/08/24 02/08/24 22:39 00:10 09:28 WBC 8.5 RBC 3.03 L Hgb 8.8 L Hct 30.8 L MCV 101.7 H MCH 29.0 MCHC 28.6 L RDW 14.7 H Plt Count 272 MPV 8.7 Immature Gran % (Auto) Not Reportable Neut % (Auto) Not Reportable Lymph % (Auto) Not Reportable [place] % (Auto) Not Reportable Eos % (Auto) Not Reportable Baso % (Auto) Not Reportable Lymph # (Auto) Not Reportable [place] # (Auto) Not Reportable Eos # (Auto) Not Reportable Baso # (Auto) Not Reportable Abs Immat Gran (auto) Not Reportable Absolute Neuts (auto) Not Reportable Absolute Nucleated RBC Not Reportable Total Counted 100 Neutrophils % (Manual) 67 Lymphocytes % (Manual) 24.0 Monocytes % (Manual) 6 Eosinophils % (Manual) 3 Nucleated RBC % Not Reportable Abs Lymphs (Manual) 2.04 Abs Monocytes (Manual) 0.51 Absolute Eos (Manual) 0.25 Platelet Estimate Adequate % Immature Plt Fraction 0.8 L Hypochromasia 1+ Anisocytosis 1+ Schistocytes None seen Sodium 141 Potassium 4.7 Chloride 110 H Carbon Dioxide 24 Anion Gap 7 BUN 66 H Creatinine 3.10 H Estim Creat Clear Calc 35 Estimated GFR 16 L Glucose 151 H POC Capillary Glucose 165 H Calcium 9.1 Troponin I 0.030 Quality VTE Prophylaxis VTE prophylaxis: mechanical ordered and pharmacologic ordered Hospitalist MIPS Advance Care Plan I have confirmed that the patient's Advanced Care Plan is present, code status is documented, or surrogate decision maker is listed in patient medical record.: Yes Medication Reconciliation I have utilized all available resources to obtain, update and review the patients current medications (includes all prescriptions, OTC, herbals, cannabis, and nutritional supplements).: Yes
[2024-02-08 12:05] LABS: Glucose Point of Care 180 mg/dl (65-105)
--- NOTE | 2024-02-08 14:16 | P.CONPL_ITS ---
Assessment and Plan Assessment and plan (1) Chronic respiratory failure with hypoxia and hypercapnia: Code(s): J96.11 - Chronic respiratory failure with hypoxia; J96.12 - Chronic respiratory failure with hypercapnia Status: Acute Assessment and Plan: Patient has elevated CO2 at baseline. On her last admission [facility] 01/19/2024, she had a pH of 7.15 with a pCO2 of 94, was treated in the ICU for ventilatory support. She was in the hospital 2 and half weeks, had a urinary tract infection and pneumonia, when she was stabilized was transferred to facility which could not accept patients on nocturnal ventilation through her tracheostomy. She requested transfer to the hospital, however instead of returning her to [facility] where she always gets her care and her billet assembler Dr. Andrade has treated her for years, she arrived at [facility]. (2) History of tobacco abuse: Code(s): Z87.891 - Personal history of nicotine dependence Status: Acute Assessment and Plan: Quit 12 years ago, smoked from age 10 until 36, 2+ packs per day, over 50 pack year history (3) Shortness of breath: Code(s): R06.02 - Shortness of breath Status: Acute Assessment and Plan: She developed shortness of breath on arrival. (4) COPD (chronic obstructive pulmonary disease): Code(s): J44.9 - Chronic obstructive pulmonary disease, unspecified Status: Acute Assessment and Plan: Long standing, heavy smoking, 2+ ppd x 25 years. Plan plan: I ordered AVAPS on same settings she was using at [facility], tidal volume of 450 mL, rate of 15, maximum inspiratory pressure 30, minimum inspiratory pressure 15, EPAP 8, rate of 15, inspiratory time of 0.9 seconds, FiO2 30%. She will use this at night for ventilatory support. She can use in the day for support. She has her regular COPD meds ordered, has humidity using a bubbler on her O2 trach collar. She is on 6 L /min. She is a complex patient, and I will not be in-house this weekend. Transfer to [facility] would benefit her to have pulmonary doctor present. Dr Andrade has provided care to her for years. History of Present Illness History of Present Illness Consult date: 02/09/24 Chief complaint: Trach care Narrative: patient was seen Feb 08 at 17:00, Room 241 NEW: Carin Leung is a 48 year old female with complex pulmonary and medical is sues, has had a chronic tracheostomy for the last 12 years when she had acute respiratory failure, COPD, diabetes, DVT, CKD stage 4, morbid obesity with a BMI 60, debility, has not walked for at least a year. She is on a trach collar at 6 liters/minute. She was living at [facility] for the past 2 and half years. On January 18 she was admitted at [facility] with acute on chronic hypercapnic hypoxemic respiratory failure, pH 7.15 and pCO2 94. She treated in the ICU with ventilatory support. She was placed on AVAPS noninvasive mechanical ventilation with a tidal volume of 450 mL, rate of 15, maximum inspiratory pressure 30, minimum inspiratory pressure 15, EPAP 8, rate of 15, inspiratory time of 0.9 seconds, FiO2 30%. She had the usual pulmonary hygiene with incentive spirometry, P.T./OT, and efforts to wean O2. She was diagnosed with a COPD exacerbation, treated with steroids and azithromycin, DuoNebs q.6 hours, weaned yo her trach collar. She was discharged to [place], was there only 2 hours before it was clear that they did not have the proper equipment and staff to handle her needs. She came to [place] complaining of shortness of breath. DATA * 02/06/2024 CXR; Lines, tubes, and devices: Tracheostomy tube in good position. Lungs and pleura: Significant rightward rotation. Segmental right lower lung airspace disease and mild right costophrenic angle blunting. Suggestion of mild diffuse reticular opacities with indistinct vessels Cardiomediastinal silhouette: Stable. Other: No acute osseous or upper abdominal finding IMPRESSION: Exam limited by rotation. Segmental right lower lung atelectasis/consolidation. Suggestion of mild interstitial edema. Possible small right pleural effusion. * 02/07/24 ABG; 7.37/ 42/75.4/94.8 on 6L/min * BUN 66, creat 3.0; wbc 8.5, H/H 8.8, 30.8%. troponin 0.056 elevated. Review of Systems Review of Systems: All systems reviewed & are unremarkable except as noted in HPI and below PMFSH Past Medical History Medical History (Updated 02/09/24 @ 18:04 by Selene Marie MD) Anxiety Chronic respiratory failure with hypoxia and hypercapnia CKD (chronic kidney disease), stage IV COPD (chronic obstructive pulmonary disease) Depression Diabetes GERD (gastroesophageal reflux disease) History of DVT (deep vein thrombosis) History of tobacco abuse HTN (hypertension) Morbid obesity Tracheostomy dependent Surgical History Surgical History (Updated 02/08/24 @ 15:04 by Evette Santillan APRN) History of tracheostomy Family History Family History (Updated 02/09/24 @ 17:58 by Selene Marie MD) Mother COPD (chronic obstructive pulmonary disease) Other , 20 years ago COPD (chronic obstructive pulmonary disease) Social History Social History (Updated 02/09/24 @ 18:01 by Selene Marie MD) Social History: Started smoking age 10, maximum 2.5 packs per day, quit 12 years ago when she had tracheostomy placed. 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 . No children. Has lived at [facility] for the last 2.5 years. She has not been ambulatory for the last year, has gained weight. Smoking packs per day: 2 Smoking cigarettes per day: 40.0 Years smoked: 26 Smoking pack-years: 52.00 Smoking status: Former smoker Alcohol intake: never Substance use: never Substance use type: does not use Do You Feel Safe in your Home?: No Lack of Transportation: No Lack of Food: Never True Current Housing: I Have Housing Concerned About Future Housing: No Difficulty Paying Gas/Electric Bills: No Difficulty Paying for Meds: No Currently Unemployed: No Education: High School Diploma/GED Difficulty w/ Childcare or Family Care: No Spiritual care concerns: No Meds Home Medications and Allergies Home Medications Medication Instructions Recorded Confirmed Type Aspercreme (lidocaine HCl) 02/06/24 02/06/24 History Miralax 02/06/24 History Saccharomyces boulardii 250 mg 250 mg PO BID 02/06/24 02/07/24 History capsule (Florastor) amoxicillin 500 mg-potassium 02/06/24 02/06/24 History clavulanate 125 mg tablet [id number] HMB 02/06/24 02/06/24 History bisacodyl 10 mg rectal suppository 10 mg RECTAL DAILY PRN Constipation 02/06/24 02/07/24 History (Gentle Laxative (bisacodyl)) buspirone 10 mg tablet 10 mg PO TID 02/06/24 02/07/24 History citalopram 20 mg tablet 20 mg PO DAILY 02/06/24 02/07/24 History cyclobenzaprine 10 mg tablet 10 mg PO TID 02/06/24 02/07/24 History furosemide 40 mg tablet 40 mg PO DAILY 02/06/24 02/06/24 History glucagon 02/06/24 History insulin glargine See Protocol 02/06/24 History insulin lispro 02/06/24 History loperamide 2 mg capsule 2 mg PO QID PRN Diarrhea 02/06/24 02/07/24 History miconazole nitrate 2 % topical 1 applic topical DAILY 02/06/24 02/07/24 History cream montelukast 10 mg tablet 10 mg PO HS 02/06/24 02/07/24 History multivitamin 1 tablet PO DAILY 02/06/24 02/07/24 History naloxone 4 mg/actuation nasal spray 1 spray intranasal PRN PRN Opioid 02/06/24 02/07/24 History Reversal nifedipine 20 mg capsule 10 mg PO DAILY 02/06/24 02/07/24 History ondansetron HCl 4 mg tablet 4 mg PO Q4H PRN Nausea And Vomiting 02/06/24 02/07/24 History oxybutynin chloride 10 mg 10 mg PO DAILY 02/06/24 02/07/24 History tablet,extended release 24 hr oxycodone-acetaminophen 5 mg-325 1 tablet PO Q8H PRN Pain 02/06/24 02/07/24 History mg tablet pantoprazole 40 mg tablet,delayed 40 mg PO DAILY 02/06/24 02/07/24 History release rivaroxaban 10 mg tablet (Xarelto) 10 mg PO DAILY 02/06/24 02/07/24 History simethicone 80 mg chewable tablet 80 mg PO QID PRN Gastrointestinal 02/06/24 02/07/24 History Spasms Or Cramping sodium zirconium cyclosilicate 10 10 g PO TID 02/06/24 02/07/24 History gram oral powder packet (Lokelma) white petrolatum 1 applic topical DAILY 02/06/24 02/07/24 History acetaminophen 500 mg tablet 1,000 mg PO Q6H PRN Pain 02/07/24 02/07/24 History albuterol sulfate 2.5 mg/3 mL 2.5 mg inhalation Q4H PRN Wheezing 02/07/24 02/07/24 History (0.083 %) solution for nebulization budesonide 0.5 mg/2 mL suspension 0.5 mg inhalation BID 02/07/24 02/07/24 History for nebulization guaifenesin 600 mg tablet, 600 mg PO BID 02/07/24 02/07/24 History extended release 12 hr ipratropium 0.5 mg-albuterol 3 mg 3 ml inhalation Q6H 02/07/24 02/07/24 History (2.5 mg base)/3 mL nebulization soln Allergies Allergy/AdvReac Type Severity Reaction Status Date / Time levofloxacin [From Levaquin] Allergy Unknown Verified 02/06/24 21:39 vancomycin Allergy Unknown Verified 02/06/24 21:38 Vital Signs Vital Signs - 24 hr 02/07/24 14:42 02/07/24 17:24 02/07/24 18:23 Temperature 36.7 C Pulse Rate 100 97 97 Respiratory Rate 20 19 22 H Blood Pressure 171/100 H 168/102 H 153/108 H Pulse Oximetry 94 95 97 Oxygen Delivery Oxygen Flow Rate Fraction of Inspired Oxygen 02/07/24 20:33 02/07/24 22:00 02/07/24 23:49 Temperature 36.1 C L Pulse Rate 96 63 63 Respiratory Rate 22 H 16 16 Blood Pressure 155/102 H 166/86 H Pulse Oximetry 94 97 97 Oxygen Delivery High Flow Therapy with Tr Oxygen Flow Rate 8 Fraction of Inspired Oxygen 30 02/08/24 01:29 02/08/24 04:20 02/08/24 01:05 Temperature 35.9 C L Pulse Rate 89 72 Respiratory Rate 20 20 Blood Pressure 164/87 H Pulse Oximetry 96 99 Oxygen Delivery Trach Collar Oxygen Flow Rate 5 Fraction of Inspired Oxygen 33 02/08/24 01:15 02/08/24 08:00 Temperature Pulse Rate 74 Respiratory Rate 20 Blood Pressure Pulse Oximetry Oxygen Delivery Trach Collar Oxygen Flow Rate Fraction of Inspired Oxygen 33 Exam Narrative: GEN: Alert, oriented, not in distress. She has a trach, covers it when talking. She is a good historian. HEENT: pupils are equal, EOMI, symmetrical face; oral membranes moist, Mallampati IV airway, dentition suboptimal. NECK: Trachea is midline CHEST: Equal air entry, symmetric excursion, scattered wheezes, prolonged expiration. Limited excursion of lung mcintosh due to obesity. CV: Regular S1S2 no m/g/r ABD : (+) bowel sounds Extremities : no clubbing, cyanosis, or edema. PSYCH: normal thought and speech Results Laboratory Findings 02/08/24 00:10 02/08/24 00:10 ABG, PT/INR, D-dimer: ABG ABG pH 7.371 (7.350-7.450) 02/07/24 01:10 ABG pCO2 42.7 mmHg (35.0-45.0) 02/07/24 01:10 ABG pO2 75.4 mmHg (80.0-100.0) L 02/07/24 01:10 ABG O2 Saturation 94.8 % (95.0-100.0) L 02/07/24 01:10 Abnormal lab findings: Abnormal Labs 02/06/24 02/07/24 02/07/24 22:04 01:10 02:07 WBC 12.8 H RBC 3.20 L Hgb 9.4 L Hct 31.4 L MCV MCHC 29.9 L RDW 14.7 H Immature Gran % (Auto) 3.0 H Neut % (Auto) 81.0 H Lymph % (Auto) 6.6 L Lymph # (Auto) 0.84 L [place] # (Auto) 0.9 H Abs Immat Gran (auto) 0.39 H Absolute Neuts (auto) 10.4 H % Immature Plt Fraction ABG pO2 75.4 L ABG O2 Saturation 94.8 L ABG O2 Content 13.9 L Total Hemoglobin 10.5 L Chloride 109 H BUN 68 H Creatinine 3.00 H Estimated GFR 17 L Glucose 167 H POC Capillary Glucose Troponin I 0.041 H* 0.056 H* D NT-Pro-B Natriuret Pep 2720 H 02/08/24 02/08/24 02/08/24 00:10 09:28 11:56 WBC RBC 3.03 L Hgb 8.8 L Hct 30.8 L MCV 101.7 H MCHC 28.6 L RDW 14.7 H Immature Gran % (Auto) Neut % (Auto) Lymph % (Auto) Lymph # (Auto) [place] # (Auto) Abs Immat Gran (auto) Absolute Neuts (auto) % Immature Plt Fraction 0.8 L ABG pO2 ABG O2 Saturation ABG O2 Content Total Hemoglobin Chloride 110 H BUN 66 H Creatinine 3.10 H Estimated GFR 16 L Glucose 151 H POC Capillary Glucose 165 H 180 H Troponin I NT-Pro-B Natriuret Pep
[2024-02-08] MEDS: WATER FOR IRRIGATION, STERILE 1,000 ML BOTTLE 1000 ML (15:35)
[2024-02-08 16:58] LABS: Glucose Point of Care 134 mg/dl (65-105)
[2024-02-08 20:15] LABS: Glucose Point of Care 235 mg/dl (65-105)
[2024-02-08] MEDS: oxyCODONE/ACETAMINOPHEN (*CRX) 5-325 MG TABLET 1 TABLET PO (20:50)
[2024-02-08] MEDS: MONTELUKAST SODIUM 10 MG TABLET PO (20:50)
[2024-02-08] MEDS: INSULIN GLARGINE (*BKC) 100 UNITS/ML 20 UNITS SUB-Q (20:55)
[2024-02-08] MEDS: INSULIN ASPART (*BKC) 100 UNITS/ML SUB-Q (20:55)
[2024-02-09] VITALS (12 sets, daily range): BP systolic 139–155; BP diastolic 64–83; PULSE 79–88; RESP 18–20; TEMP 36.1–36.8; O2SAT 95–99
[2024-02-09] MEDS: IPRATROPIUM 0.5 MG/ALBUTEROL SULFATE 2.5 MG AMPUL.NEB 3 ML INHALATION ×4 (02:25→19:37)
[2024-02-09] MEDS: ACETAMINOPHEN 500 MG TABLET 1000 MG PO (02:43)
[2024-02-09] MEDS: BUDESONIDE RESPULE NEB 0.5 MG/2 ML AMP INHALATION ×2 (07:36→19:37)
[2024-02-09 08:14] LABS: Glucose Point of Care 165 mg/dl (65-105)
[2024-02-09] MEDS: CYCLOBENZAPRINE HCL 10 MG TABLET PO ×3 (08:46→17:23)
[2024-02-09] MEDS: SACCHAROMYCES BOULARDII 250 MG CAPSULE PO ×2 (08:46→17:23)
[2024-02-09] MEDS: MULTIVITAMINS THERAPEUTIC TAB (*BKC) 1 TABLET PO (08:46)
[2024-02-09] MEDS: oxyBUTYnin CHLORIDE XL 5 MG TAB.ER.24 10 MG PO (08:46)
[2024-02-09] MEDS: NIFEdipine 10 MG CAPSULE PO (08:46)
[2024-02-09] MEDS: PANTOPRAZOLE 40 MG TABLET PO (08:46)
[2024-02-09] MEDS: guaiFENesin 12 HR 600 MG TABCR PO ×2 (08:46→21:22)
[2024-02-09] MEDS: CITALOPRAM HYDROBROMIDE 10 MG TABLET 20 MG PO (08:46)
[2024-02-09] MEDS: RIVAROXABAN 10 MG TABLET PO (08:46)
[2024-02-09] MEDS: busPIRone HCL 10 MG TABLET PO ×3 (08:46→17:23)
[2024-02-09] MEDS: FUROSEMIDE 40 MG TABLET PO (08:46)
[2024-02-09] MEDS: oxyCODONE/ACETAMINOPHEN (*CRX) 5-325 MG TABLET 1 TABLET PO ×2 (09:05→21:21)
--- NOTE | 2024-02-09 09:10 | P.PNIM_ITS ---
Progress Note: A&P Assessment and Plan (1) Shortness of breath: Code(s): R06.02 - Shortness of breath Status: Acute Assessment and Plan: - CXR: Exam limited by rotation. Segmental right lower lung atelectasis/ consolidation. Suggestion of mild interstitial edema. Possible small right pleural effusion. - Acute respiratory virus PCR negative. - troponin: 0.041 -> 0.056 -> 0.030. No chest pain. - Reports complete antibiotics treatment for PNA from the hospital she just came from. - BNP 2720, treated at [facility] and awaiting medical records. - Pt reports she's at her normal baseline currently. 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 - CPT b.i.d. as tolerated for possible mucus plugging and EZ PAP Q4 - consumer loan processor consulted for AVAPS settings, needed for placement. - Continue nebulized treatments per RT. (3) Debility: Code(s): R53.81 - Other malaise Status: Acute Assessment and Plan: - previously discharged to [place] but reports feels unsafe over there and wants to be placed at a different facility. - unable to be placed from ED and prefers to go to [facility]. - care coordination consulted. - Patient bedbound at baseline. (4) Depression: Code(s): F32.A - Depression, unspecified Status: Acute Assessment and Plan: - Stable. - Continue Citalopram and Buspar. (5) HTN (hypertension): Code(s): I10 - Essential (primary) hypertension Status: Acute Assessment and Plan: - Appears stable. - Continue Lasix and Nifedipine. (6) History of DVT (deep vein thrombosis): Code(s): Z86.718 - Personal history of other venous thrombosis and embolism Status: Acute Assessment and Plan: - Continue Xarelto. Plan Diet: Heart healthy GI Prophylaxis: Not currently indicated DVT Prophylaxis: SCDs, Xarelto Lines: Peripheral Code Status: Full code Time Spent With Patient Time with patient: 15 - 25 minutes Subjective Date/time seen: 02/09/24 09:10 Patient states she feels alright, no SOB or other distress, just awaiting placement. Interval history: Patient calm on bedrest and looks to be in no acute distress. Review of Systems Review of Systems: All systems reviewed & are unremarkable except as noted in HPI and below Exam Narrative: General: Chronically ill appearing, super-morbidly obese, no acute distress. HEENT: Atraumatic, PERRL, EOM, moist mucosa. NECK: Supple. Tracheostomy midline. Lungs: Clear bilaterally. Heart: RRR, no murmurs. Abdomen: Soft, obese, non-tender, +ve bowel sounds X4 quadrants. Extremities: No edema, 2+ radial and pedal pulses. Skin: Warm and dry. No open lesions noted. Neuro: Well oriented. CN II-XII grossly intact. Psych: Calm and co-operative. Objective Data Vital Signs Vital Signs: Vital Signs - 24 hr 02/08/24 14:00 02/08/24 15:30 02/08/24 15:55 Temperature 97.7 F Pulse Rate 84 72 77 Respiratory Rate 16 20 20 Blood Pressure 162/89 H Pulse Oximetry 100 Oxygen Delivery Oxygen Flow Rate Fraction of Inspired Oxygen 02/08/24 20:04 02/08/24 20:06 02/08/24 20:06 Temperature 98.3 F Pulse Rate 92 101 H Respiratory Rate 18 20 Blood Pressure 181/90 H Pulse Oximetry 100 99 Oxygen Delivery Trach Collar Oxygen Flow Rate 8 Fraction of Inspired Oxygen 33 02/08/24 20:17 02/08/24 22:04 02/08/24 20:42 Temperature Pulse Rate 96 Respiratory Rate 20 Blood Pressure 153/82 H Pulse Oximetry 99 Oxygen Delivery High Flow Therapy with Tr Oxygen Flow Rate 8 Fraction of Inspired Oxygen 02/09/24 02:25 02/09/24 02:33 02/09/24 06:00 Temperature 98.3 F Pulse Rate 80 86 85 Respiratory Rate 20 20 18 Blood Pressure 155/83 H Pulse Oximetry 99 Oxygen Delivery Oxygen Flow Rate Fraction of Inspired Oxygen Intake/Output Intake/Output: Intake & Output 02/06/24 02/07/24 02/08/24 02/09/24 23:59 23:59 23:59 23:59 Intake Total 360 Output Total 1200 600 660 Balance -1200 240 -135 Meds/Results Medications: Active Medications Generic Name Dose Route Start Last Admin Trade Name Freq PRN Reason Stop Dose Admin Acetaminophen 1,000 mg 02/07/24 23:29 02/09/24 02:43 Acetaminophen 500 Mg Tablet PO 1,000 mg Q6H PRN Administration Mild Pain Albuterol 2.5 mg 02/07/24 23:29 Albuterol Sulfate Neb 2.5 Mg/3 Ml Inh INHALATION Q4HRT PRN Wheezing Albuterol/Ipratropium 3 ml 02/08/24 02:00 02/09/24 07:36 Ipratropium 0.5 Mg/Albuterol Sulfate 2.5 Mg Ampul.Neb 3 Ml INHALATION 3 ml Q6HRT SHEBA Administration Bisacodyl 10 mg 02/07/24 23:29 Bisacodyl 10 Mg Suppository RECTAL DAILY PRN Constipation Budesonide 0.5 mg 02/08/24 08:00 02/09/24 07:36 Budesonide Respule Neb 0.5 Mg/2 Ml Amp INHALATION 0.5 mg Q12HRT SHEBA Administration Buspirone HCl 10 mg 02/08/24 09:00 02/09/24 08:46 Buspirone Hcl 10 Mg Tablet PO 10 mg TID SHEBA Administration Citalopram Hydrobromide 20 mg 02/08/24 09:00 02/09/24 08:46 Citalopram Hydrobromide 10 Mg Tablet PO 20 mg QAM SHEBA Administration Cyclobenzaprine HCl 10 mg 02/08/24 09:00 02/09/24 08:46 Cyclobenzaprine Hcl 10 Mg Tablet PO 10 mg TID SHEBA Administration Dextrose 12.5 gm 02/08/24 09:38 Dextrose 50% 25 Gm/50 Ml Syringe IV PUSH PRN PRN Hypoglycemia Protocol Emollient Ointment 1 applic 02/08/24 09:00 02/08/24 09:13 Petrolatum Ointment 5 Gm Packet TOPICAL 1 applic DAILY SHEBA Administration Furosemide 40 mg 02/08/24 09:00 02/09/24 08:46 Furosemide 40 Mg Tablet PO 40 mg DAILY SHEBA Administration Glucagon 1 mg 02/08/24 09:38 Glucagon For Inj 1 Mg Vial IM PRN PRN Hypoglycemia Protocol Glucose 15 gm 02/08/24 09:38 Glucose Oral Gel 15 Gm Of Glucse In 37.5 Gm Tube PO PRN PRN Hypoglycemia Protocol Guaifenesin 600 mg 02/08/24 09:00 02/09/24 08:46 Guaifenesin 12 Hr 600 Mg Tabcr PO 600 mg Q12HR SHEBA Administration Dextrose 1,000 mls @ 100 mls/hr 02/08/24 09:38 Dextrose 5% 1,000 Ml IVPB PRN PRN Hypoglycemia Protocol Insulin Aspart 3 - 6 units 02/08/24 12:00 02/09/24 08:42 Insulin Aspart (*Bkc) 100 Units/Ml SUB-Q Not Given TIDWM [facility] Protocol Insulin Aspart 1 - 3 units 02/08/24 21:00 02/08/24 20:55 Insulin Aspart (*Bkc) 100 Units/Ml SUB-Q 1 units HS SHEBA Administration Protocol Insulin Glargine 20 units 02/08/24 21:00 02/08/24 20:55 Insulin Glargine (*Bkc) 100 Units/Ml SUB-Q 20 units HS SHEBA Administration Loperamide HCl 2 mg 02/07/24 23:29 Loperamide Hcl 2 Mg Capsule PO QID PRN Diarrhea Miconazole Nitrate 1 applic 02/08/24 09:00 02/08/24 09:13 Miconazole Nitrate 2% Cream 30 Gm Tube TOPICAL 1 applic DAILY SHEBA Administration Montelukast Sodium 10 mg 02/08/24 21:00 02/08/24 20:50 Montelukast Sodium 10 Mg Tablet PO 10 mg HS SHEBA Administration Multivitamins Therapeutic 1 tablet 02/08/24 09:00 02/09/24 08:46 Multivitamins Therapeutic Tab (*Bkc) PO 1 tablet DAILY SHEBA Administration Naloxone HCl 0.4 mg 02/08/24 00:09 Naloxone Hcl 0.4 Mg/Ml Vial IV PUSH PRN PRN OPIATE REVERSAL Nifedipine 10 mg 02/08/24 09:00 02/09/24 08:46 Nifedipine 10 Mg Capsule PO 10 mg DAILY SHEBA Administration Ondansetron HCl 4 mg 02/07/24 23:29 Ondansetron Hcl Odt 4 Mg Tablet PO Q4H PRN Nausea And Vomiting Oxybutynin Chloride 10 mg 02/08/24 09:00 02/09/24 08:46 Oxybutynin Chloride Xl 5 Mg Tab.Er.24 PO 10 mg DAILY SHEBA Administration Oxycodone/Acetaminophen 1 tablet 02/07/24 23:29 02/09/24 09:05 Oxycodone/Acetaminophen (*Crx) 5-325 Mg Tablet PO 1 tablet Q8H PRN Administration moderate-severe pain Pantoprazole Sodium 40 mg 11/28/24 09:00 02/09/24 08:46 Pantoprazole 40 Mg Tablet PO 40 mg DAILY [facility] Administration Rivaroxaban 10 mg 02/08/24 09:00 02/09/24 08:46 Rivaroxaban 10 Mg Tablet PO 10 mg DAILY [facility] Administration Saccharomyces Boulardii 250 mg 02/08/24 09:00 02/09/24 08:46 Saccharomyces Boulardii 250 Mg Capsule PO 250 mg BID [facility] Administration Simethicone 80 mg 02/07/24 23:29 Simethicone 80 Mg Tab.Chew PO QID PRN Gastrointestinal Spasms Or Cramping Sodium Zirconium Cyclosilicate 10 gm 02/08/24 09:00 Sodium Zirconium Cyclosilicate 10 Gm Powd.Pack PO TID [facility] Radiology Results: ITS Impressions Chest X-Ray 02/06/24 21:51 IMPRESSION: Exam limited by rotation. Segmental right lower lung atelectasis/consolidation. Suggestion of mild interstitial edema. Possible small right pleural effusion. Labs Labs: Laboratory Results - last 24 hr 02/08/24 02/08/24 02/08/24 09:28 11:56 16:46 POC Capillary Glucose 165 H 180 H 134 H 02/08/24 02/09/24 20:08 08:06 POC Capillary Glucose 235 H 165 H Quality VTE Prophylaxis VTE prophylaxis: mechanical ordered and pharmacologic ordered Hospitalist MIPS Advance Care Plan I have confirmed that the patient's Advanced Care Plan is present, code status is documented, or surrogate decision maker is listed in patient medical record.: Yes Medication Reconciliation I have utilized all available resources to obtain, update and review the patients current medications (includes all prescriptions, OTC, herbals, cannabis, and nutritional supplements).: Yes
[2024-02-09 11:56] LABS: Glucose Point of Care 186 mg/dl (65-105)
[2024-02-09] MEDS: PETROLATUM OINTMENT 5 GM PACKET 1 APPLIC TOPICAL (14:23)
[2024-02-09] MEDS: MICONAZOLE NITRATE 2% CREAM 30 GM TUBE 1 APPLIC TOPICAL (14:23)
[2024-02-09 17:01] LABS: Glucose Point of Care 146 mg/dl (65-105)
--- NOTE | 2024-02-09 18:45 | PC.NURSE ---
Spoke with transfer center regarding patient and let them know that pulmonology does think transfer is necessary at this time, as we do not always have pulmonology available on weekends and the patient is complex/ already established with pulmonology at [facility].
[2024-02-09 20:41] LABS: Glucose Point of Care 136 mg/dl (65-105)
[2024-02-09] MEDS: MONTELUKAST SODIUM 10 MG TABLET PO (21:22)
[2024-02-09] MEDS: INSULIN GLARGINE (*BKC) 100 UNITS/ML 20 UNITS SUB-Q (21:23)
--- NOTE | 2024-03-18 23:24 | PM.TDS ---
Transfer Discharge Sum: Prov Provider Date of admission: 02/10/24 18:12 Primary care physician: UNKNOWN,DOCTOR Admitting clinician: Yogi Lai MD Consults: 02/07/24 Care Coordination Consult Routine Reason for Consult:: Fpc Placement Consult to Physician Routine Consulting Provider: Selene Marie call circuit worker/MD group to consult: Pulmonology Reason for consultation: AVAPS settings for placement, chronic trach, possible mucous plugging Attending physician on discharge: Lester Hogan Discharging clinician: Steph Celeste Anticipated date of transfer: 02/10/24 Receiving physician/facility: Unknown DS: Admitting Diagnosis Discharge Date 02/10/24 Admitting Diagnosis Shortness of Breath DS: Discharge Diagnosis Discharge Diagnosis (1) Shortness of breath: Code(s): R06.02 - Shortness of breath Status: Acute Assessment and Plan: - Acute on Chronic. 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 (3) Debility: Code(s): R53.81 - Other malaise Status: Acute Assessment and Plan: - Patient bedbound at baseline. (4) Depression: Code(s): F32.A - Depression, unspecified Status: Acute Assessment and Plan: - Chronic. - Continue Citalopram and Buspar. (5) HTN (hypertension): Code(s): I10 - Essential (primary) hypertension Status: Acute Assessment and Plan: - Chronic. - Continued on Lasix and Nifedipine. (6) History of DVT (deep vein thrombosis): Code(s): Z86.718 - Personal history of other venous thrombosis and embolism Status: Acute Assessment and Plan: - Continued on Xarelto. Plan Transfer to [facility] Diet: Heart healthy GI Prophylaxis: Not currently indicated DVT Prophylaxis: SCDs, Xarelto Lines: Peripheral Code Status: Full code Transfer Discharge Sum: Med Medications Active and Home Medications: Home Medications Aspercreme (lidocaine HCl) 02/06/24 [History Confirmed 02/06/24] Miralax 02/06/24 [History] Saccharomyces boulardii 250 mg capsule (Florastor) 250 mg PO BID 02/06/24 [History Confirmed 02/07/24] amoxicillin 500 mg-potassium clavulanate 125 mg tablet 02/06/24 [History Confirmed 02/06/24] [id number] HMB 02/06/24 [History Confirmed 02/06/24] bisacodyl 10 mg rectal suppository (Gentle Laxative (bisacodyl)) 10 mg RECTAL DAILY PRN Constipation 02/06/24 [History Confirmed 02/07/24] buspirone 10 mg tablet 10 mg PO TID 02/06/24 [History Confirmed 02/07/24] citalopram 20 mg tablet 20 mg PO DAILY 02/06/24 [History Confirmed 02/07/24] cyclobenzaprine 10 mg tablet 10 mg PO TID 02/06/24 [History Confirmed 02/07/24] furosemide 40 mg tablet 40 mg PO DAILY 02/06/24 [History Confirmed 02/06/24] glucagon 02/06/24 [History] insulin glargine See Protocol 02/06/24 [History] insulin lispro 02/06/24 [History] loperamide 2 mg capsule 2 mg PO QID PRN Diarrhea 02/06/24 [History Confirmed 02/07/24] miconazole nitrate 2 % topical cream 1 applic topical DAILY 02/06/24 [History Confirmed 02/07/24] montelukast 10 mg tablet 10 mg PO HS 02/06/24 [History Confirmed 02/07/24] multivitamin 1 tablet PO DAILY 02/06/24 [History Confirmed 02/07/24] naloxone 4 mg/actuation nasal spray 1 spray intranasal PRN PRN Opioid Reversal 02/06/24 [History Confirmed 02/07/24] nifedipine 20 mg capsule 10 mg PO DAILY 02/06/24 [History Confirmed 02/07/24] ondansetron HCl 4 mg tablet 4 mg PO Q4H PRN Nausea And Vomiting 02/06/24 [History Confirmed 02/07/24] oxybutynin chloride 10 mg tablet,extended release 24 hr 10 mg PO DAILY 02/06/24 [History Confirmed 02/07/24] oxycodone-acetaminophen 5 mg-325 mg tablet 1 tablet PO Q8H PRN Pain 02/06/24 [History Confirmed 02/07/24] pantoprazole 40 mg tablet,delayed release 40 mg PO DAILY 02/06/24 [History Confirmed 02/07/24] rivaroxaban 10 mg tablet (Xarelto) 10 mg PO DAILY 02/06/24 [History Confirmed 02/07/24] simethicone 80 mg chewable tablet 80 mg PO QID PRN Gastrointestinal Spasms Or Cramping 02/06/24 [History Confirmed 02/07/24] sodium zirconium cyclosilicate 10 gram oral powder packet (Lokelma) 10 g PO TID 02/06/24 [History Confirmed 02/07/24] white petrolatum 1 applic topical DAILY 02/06/24 [History Confirmed 02/07/24] acetaminophen 500 mg tablet 1,000 mg PO Q6H PRN Pain 02/07/24 [History Confirmed 02/07/24] albuterol sulfate 2.5 mg/3 mL (0.083 %) solution for nebulization 2.5 mg inhalation Q4H PRN Wheezing 02/07/24 [History Confirmed 02/07/24] budesonide 0.5 mg/2 mL suspension for nebulization 0.5 mg inhalation BID 02/07/24 [History Confirmed 02/07/24] guaifenesin 600 mg tablet, extended release 12 hr 600 mg PO BID 02/07/24 [History Confirmed 02/07/24] ipratropium 0.5 mg-albuterol 3 mg (2.5 mg base)/3 mL nebulization soln 3 ml inhalation Q6H 02/07/24 [History Confirmed 02/07/24] Transfer Discharge Sum: Hosp Hospital Course Hospital course: Carin Leung is a 49 year old female with chronic tracheostomy who was sent to the ER from the SNF that she resided with reports of SOB. Patient had just been discharged to SNF from [facility] earlier during the day after treatment for PNA. She became SOB but the SNF was unable to suction her tracheostomy as they did not have the right equipment. Patient was suctioned in the ER and her SOB significantly improved, but patient was not comfortable returning to the SNF as she was concerned of mucus plugging if the facility was unable to suction her due to lack of proper equipment. Patient requested to be transferred back to [facility] as she made arrangements for SNF placement. She just completed IV abx at [facility] so abx therapy was held. Her CXR Showed segmental right lower lung atelectasis/consolidation. Suggestion of mild interstitial edema. Possible small right pleural effusion. Her acute respiratory virus PCR was negative. With troponin mildly elevated but trended down, with no chest pain reported. Pt reported sh was at her normal baseline prior to transfer, and she was medically stable for transfer with no acute distress noted or reported prior to transfer. Time Spent with Patient Time attestation: Total time spent providing and/or coordinating transfer services: Total time spent: Greater than 30 minutes Exam Narrative: General: Chronically ill appearing, super-morbidly obese, no acute distress. HEENT: Atraumatic, PERRL, EOM, moist mucosa. NECK: Supple. Tracheostomy midline. Lungs: Clear bilaterally. Heart: RRR, no murmurs. Abdomen: Soft, obese, non-tender, +ve bowel sounds X4 quadrants. Extremities: No edema, 2+ radial and pedal pulses. Skin: Warm and dry. No open lesions noted. Neuro: Well oriented. CN II-XII grossly intact. Psych: Calm and co-operative.
== END 2024-02-10 02:13 | disposition short-term general hospital (02) ==
LOC: ANHED 02-07 18:16 → ANH2MED 02-07 19:51
PROVIDERS: Emergency Medicine; Student in an Organized Health Care Education/Training Program; Admitting Provider Internal Medicine; Emergency Provider Emergency Medicine; Visit Provider Internal Medicine
DX: R06.02 Shortness of breath (principal); Z93.0 Tracheostomy status; R53.81 Other malaise; Z74.01 Bed confinement status; F32.A Depression, unspecified; E11.22 Type 2 diabetes mellitus with diabetic chronic kidney disease; I12.9 Hypertensive chronic kidney disease with stage 1 through stage 4 chronic kidney disease, or unspecified chronic kidney disease; N18.4 Chronic kidney disease, stage 4 (severe); J44.9 Chronic obstructive pulmonary disease, unspecified; F41.9 Anxiety disorder, unspecified; E66.01 Morbid (severe) obesity due to excess calories; Z68.43 Body mass index [BMI] 50.0-59.9, adult; Z20.822 Contact with and (suspected) exposure to COVID-19; Z75.1 Person awaiting admission to adequate facility elsewhere; Z79.01 Long term (current) use of anticoagulants; Z79.51 Long term (current) use of inhaled steroids; Z86.718 Personal history of other venous thrombosis and embolism; Z87.891 Personal history of nicotine dependence
CPT/HCPCS: 36415; 36600; 71045; 80048; 80053; 82805; 82948; 83605; 83880; 84484; 85018; 85025; 85055; 87637; 93005; 94640; 96374; 96375; 96376; 99285; A9270; J0360; J1171; J1815; J2270